=== PATIENT | male | born 1960 | race Caucasian/White ===

== ENCOUNTER → 2016-10-08 | Outpatient (CLI) | payer OTHER ==
[~2016-10-08] MED LIST: LEVO-17 PO
[2016-10-08 08:32] LABS: CALCIUM 8.6 mg/dl (8.5-10.1)
[2016-10-08 08:36] LABS: BLOOD UREA NITROGEN 16 mg/dl (7-18); BUN/CREATININE RATIO 16.8 (10-20); CARBON DIOXIDE 28 mmol/L (21-32); CHLORIDE 108 mmol/L (98-107); CREATININE 0.97 mg/dl (0.60-1.40); GLUCOSE 99 mg/dl (70-99); POTASSIUM 4.1 mmol/L (3.5-5.1); SODIUM 143 mmol/L (136-145)
--- NOTE | 2016-10-08 08:47 | DIAGNOSTIC IMAGING REPORT ---
RENAL ULTRASOUND HISTORY: R33.9 Urinary retention COMPARISON: 03/03/2016 FINDINGS: Right kidney: Maximum dimension 10.1 cm. No evidence for hydronephrosis. Normal corticomedullary differentiation and cortical thickness. Left kidney: Maximum dimension 10.5 cm. 9 mm nonobstructing mid pole calcification Normal corticomedullary differentiation and cortical thickness. Bladder: No bladder wall thickening. The bilateral ureteral jets were identified. IMPRESSION: 1. Nonobstructing left renal calcification. 2. Otherwise normal study Electronically signed by: Javan Duff M.D. 10/08/2016 8:46 AM Dictated Date/Time: 10/08/2016 8:44 AM
== END | disposition home or self-care (01) ==
LOC: C.ULTR 07:47
PROVIDERS: ATTEND Urology
DX: R33.9 Retention of urine, unspecified (principal); N28.89 Other specified disorders of kidney and ureter